=== PATIENT | female | born 1995 | race Caucasian/White ===

== ENCOUNTER 2017-02-26 20:13 | Observation (INO) | payer MEDICAID ==
[~2017-02-26 20:13] MED LIST: CLEOCIN TP; FIORICET 50-301 EAC1 PO; IBUPROFEN800 M1 PO; IMITREX25 M1 PO; KEFLEX500 M4 PO; MACROBID 100 M100 M1 PO; MONTELUKAST SOD10 M2 PO; NORCO 5-325 TA1 EACH PO; PERCOCET 5-3251 EACH PO; PRENATAL TABLE1 EAC3 PO; PRILOSEC OTC20 M1 PO; SPRINTEC 28 DA1 EACH PO; TYLENOL325 M2 PO; VALTREX500 M1 PO; VISTARIL25 M1 PO; VISTARIL50 M1 PO; ZOFRAN ODT4 MG PO; ZOFRAN4 M2 PO; [UNRECOGNIZED DRUG - OTHER] PO
[2017-02-26 20:33] LABS: URINE APPEARANCE CLEAR; URINE BILIRUBIN NEGATIVE (NEG); URINE BLOOD NEGATIVE (NEG); URINE COLOR PALE YELLOW; URINE GLUCOSE (UA) NEGATIVE (NEG); URINE KETONE NEGATIVE (NEG); URINE LEUKOCYTE ESTERASE POSITIVE (NEG); URINE NITRITE NEGATIVE (NEG); URINE PROTEIN NEGATIVE (NEG)
[2017-02-26 20:51] LABS: URINE RBC 0-1 /[HPF] (0-5)
[2017-02-26 20:52] LABS: URINE BACTERIA 1+
[2017-02-26 20:53] LABS: URINE MUCUS 1+
[2017-02-26] MEDS ORDERED: VALTREX500 M1 (21:01)
== END 2017-02-26 21:38 ==
LOC: LDR 20:13
PROVIDERS: Obstetrics & Gynecology; ADMIT Obstetrics & Gynecology
DX: O99.89 Other specified diseases and conditions complicating pregnancy, childbirth and the puerperium (principal); M54.9 Dorsalgia, unspecified; Z3A.35 35 weeks gestation of pregnancy

== ENCOUNTER 2017-03-22 20:01 | Inpatient (IN) | payer MEDICAID ==
[~2017-03-22 20:01] MED LIST changes: +VALTREX500 M1
[2017-03-22 22:24] LABS: BASO % 0.2 % (0-2); EOS % 0.7 % (0-7); EOSINOPHIL ABSOLUTE COUNT 0.1 tho/cmm (0.0-0.7); HCT-HEMATOCRIT 30.7 % (34.0-49.0); HGB-HEMOGLOBIN 10.3 gm/dl (12.0-15.5); IMMATURE GRANULOCYTES ABSOLUTE 0.09 tho/cmm (0-0.03); IMMATURE GRANULOCYTES PERCENT 0.8 % (0-0.3); LYMPH % 29.1 % (20-45); LYMPH ABSOLUTE COUNT 3.1 tho/cmm (0.8-4.5); MCH (MEAN CORPUSCULAR HGB) 28.1 pg (28.0-32.0); MCHC MEAN CORPUSCULAR HGB CONC 33.6 % (32.0-36.0); MCV (MEAN CELL VOLUME) 83.9 fl (82.0-96.0); MONOCYTE ABSOLUTE COUNT 1.3 tho/cmm (0.0-1.2); NEUTROPHIL ABSOLUTE COUNT 6.1 tho/cmm (1.6-8.0); NEUTROPHIL-AUTOMATED 6.1 tho/cmm (1.6-8.0); NEUTROPHILS % 57.2 % (40-80); PLATELET COUNT 257 tho/cmm (150-450); RED BLOOD COUNT 3.66 mil/cmm (4.00-5.20); RED CELL DISTRIBUTION WIDTH 14.3 % (12.4-16.4); WHITE BLOOD COUNT 10.6 tho/cmm (4.0-10.0)
[2017-03-24 05:41] LABS: BASO % 0.1 % (0-2); EOS % 1.2 % (0-7); EOSINOPHIL ABSOLUTE COUNT 0.2 tho/cmm (0.0-0.7); HCT-HEMATOCRIT 31.2 % (34.0-49.0); HGB-HEMOGLOBIN 10.3 gm/dl (12.0-15.5); IMMATURE GRANULOCYTES ABSOLUTE 0.11 tho/cmm (0-0.03); IMMATURE GRANULOCYTES PERCENT 0.8 % (0-0.3); LYMPH % 29.9 % (20-45); LYMPH ABSOLUTE COUNT 4.3 tho/cmm (0.8-4.5); MCH (MEAN CORPUSCULAR HGB) 27.8 pg (28.0-32.0); MCV (MEAN CELL VOLUME) 84.3 fl (82.0-96.0); MEAN PLATELET VOLUME 10.2 cmc (9.4-12.4); MONO % 7.6 % (0-12); MONOCYTE ABSOLUTE COUNT 1.1 tho/cmm (0.0-1.2); NEUTROPHIL ABSOLUTE COUNT 8.6 tho/cmm (1.6-8.0); NEUTROPHIL-AUTOMATED 8.6 tho/cmm (1.6-8.0); NEUTROPHILS % 60.4 % (40-80); PLATELET COUNT 248 tho/cmm (150-450); RED CELL DISTRIBUTION WIDTH 14.5 % (12.4-16.4); WHITE BLOOD COUNT 14.3 tho/cmm (4.0-10.0)
[2017-03-25] MEDS ORDERED: NORCO 5-325 TA1 EACH PO (05:48)
== END 2017-03-25 18:50 | DRG 775 ==
LOC: LDR 20:01 → OBGD 03-23 14:27
PROVIDERS: Anesthesiology; ADMIT Obstetrics & Gynecology
PROC: 10E0XZZ Delivery of Products of Conception, External Approach (ICD-10-PCS; principal; 2017-03-23)
PROC: 10907ZC Drainage of Amniotic Fluid, Therapeutic from Products of Conception, Via Natural or Artificial Opening (ICD-10-PCS; 2017-03-23)
DX: O80 Encounter for full-term uncomplicated delivery (principal); Z37.0 Single live birth; Z3A.39 39 weeks gestation of pregnancy
CPT/HCPCS: J2590